=== PATIENT | female | born 1950 | race Two or more races ===

== ENCOUNTER 2025-05-15 14:32 | Emergency (ER) | payer MEDICARE ==
[~2025-05-15] VITALS: Ht 160 cm; Wt 61.2 kg
[2025-05-15 14:36] VITALS: TEMP 98
[2025-05-15 15:16] LABS: PLATELET COUNT (AUTO) 241 K/uL (150-450); RED BLOOD CELL COUNT(AUTO) 3.72 MIL/uL (4.0-5.2); RED CELL DISTRIBUTION WIDTH 14.3 % (11.5-15.0); WHITE BLOOD COUNT (AUTO) 6.6 K/uL (4.3-11.0)
[2025-05-15 15:30] LABS: CALCIUM, SERUM 9.3 mg/dL (8.5-10.1); CREATININE 1.3 mg/dL (0.6-1.3); SODIUM SERUM 140.0 mmol/L (136-145); UREA NITROGEN, BLOOD 22.0 mg/dL (7-18)
[2025-05-15] MEDS ORDERED: IOHEXOL-350 100 ML VIAL IV ONE (15:51)
[2025-05-15] MEDS ORDERED: IV NS 0.9% 250 ML IV ONE (15:51)
[2025-05-15] MEDS ORDERED: ONDANSETRON HCL/PF 4 MG/2 ML VIAL ONE (16:33)
[2025-05-15] MEDS: ONDANSETRON HCL/PF - ER 4 MG/2 ML VIAL IV ONE (16:35)
[2025-05-15] MEDS ORDERED: LORAZEPAM 1 MG TABLET ONE (18:04)
[2025-05-15] MEDS: LORAZEPAM 1 MG TABLET PO ONE (18:08)
[2025-05-15 18:16] VITALS: BP 128/75; O2SAT 98
== END 2025-05-15 18:15 | disposition home or self-care (01) ==
LOC: ER 14:39
DX: F41.9 Anxiety disorder, unspecified (principal); E11.9 Type 2 diabetes mellitus without complications; Z79.4 Long term (current) use of insulin; Z88.2 Allergy status to sulfonamides
CPT/HCPCS: 99285; 96374; 71275; 71045; 93005; 85025; 80048; 85378; 36415; 84484 ×2; J2405; J7050; Q9967